=== PATIENT | male | born 1975 | race African-American/Black ===

== ENCOUNTER 2018-01-01 13:55 | Emergency (ER) | payer BC ==
[2018-01-01 14:56] LABS: #Basophils 0.1 thou/uL (0.0-0.2); #Lymphocytes 1.4 thou/uL (1.20-3.40); #Monocytes 0.5 thou/uL (0.11-0.59); #Neutrophils 3.6 thou/uL (1.40-6.50); %Basophils 1.1 % (0.0-1.0); %Eosinophils 0.9 % (0.0-10.0); %Lymphocytes 25.4 % (21.0-51.0); %Monocytes 9.1 % (0.0-10.0); %Neutrophils 63.5 % (42.0-75.0); Hemoglobin 16.1 g/dL (14.0-18.0); Mean Corpuscular HGB CONC 35.1 g/dL (32.0-36.0); Mean Corpuscular Hemoglobin 32.4 pg (27.0-31.0); Mean Corpuscular Volume 92.5 fl (80.0-94.0); Mean Platelet Volume 6.5 fL (7.4-10.4); Platelet Count 271 thou/uL (130-400); RBC Distribution Width 12.5 % (11.5-14.5); Red Blood Cell (RBC) Count 4.95 mill/uL (4.70-6.10); White Blood Cell (WBC) Count 5.6 thou/uL (4.8-10.8)
--- NOTE | 2018-01-01 15:02 | CT ---
CT BRAIN PERFORMED WITHOUT CONTRAST ENHANCEMENT: Date: 01/01/18 HISTORY: Brain cancer. History of seizure. COMPARISON: 09/17/16. FINDINGS: The ventricular and cisternal system is within normal limits. There are no signs of intracerebral hem orrhage or extra-axial fluid collections. Postoperative changes over the left frontoparietal convexit y are again noted. No change since the prior exam. IMPRESSION: Stable exam. POS: [facility]
[2018-01-01 15:17] LABS: ALT (SGPT) 20 U/L (8-55); AST (SGOT) 20 U/L (5-34); Albumin 3.8 g/dL (3.5-5.0); Alkaline Phosphatase 77 U/L (40-150); Anion Gap 11 mmol/L (10-20); BUN (Urea Nitrogen) 13 mg/dL (8.9-20.6); Bilirubin, Total 0.5 mg/dL (0.2-1.2); Calc. Creatinine Clearance 0 mL/min (70-130); Calcium 9.5 mg/dL (7.8-10.44); Carbon Dioxide 25 mmol/L (22-29); Chloride 103 mmol/L (98-107); Estimated GFR-MDRD 67; Globulin 3.1 g/dL (2.4-3.5); Glucose 93 mg/dL (70-105); Potassium 3.9 mmol/L (3.5-5.1); Protein, Total 6.9 g/dL (6.0-8.3); Sodium 135 mmol/L (136-145)
== END 2018-01-01 16:38 | disposition home or self-care (01) ==
LOC: ERS 13:55
DX: R56.9 Unspecified convulsions (principal); F17.210 Nicotine dependence, cigarettes, uncomplicated
CPT/HCPCS: 36415; 70450; 80053; 84146; 85025; 93005

== ENCOUNTER 2018-01-07 10:33 | Inpatient (IN) | payer BC ==
--- NOTE | 2018-01-07 11:19 | CT ---
CT BRAIN WITHOUT CONTRAST: History: Left sided extremity weakness. FINDINGS: Comparison is made with exam of 12-31-17. No interval change is seen. There is no evidence of acute infarct, hemorrhage, midline shift or abnor mal extraaxial fluid collections Ventricular size is normal and the basilar cisterns are patent. Pos t op changes over the left frontoparietal convexity are again seen. IMPRESSION: 1. Stable exam. No CT evidence of acute intracranial process. 2. Discussed over the telephone with ER physician Dr Laws at 10:29 a.m. POS: [facility]
--- NOTE | 2018-01-07 11:33 | CT ---
CTA OF THE HEAD AND NECK UTILIZING IV CONTRAST AND 3D REFORMATTED IMAGING: Date: 01/07/18 INDICATION: Stroke alert for left-sided extremity weakness, onset 25 minutes ago. COMPARISON: CT of brain performed earlier on 01/07/18 and a prior dated 01/01/18. MRI of the brain dated 02/22/11 . FINDINGS: No hemodynamically significant stenosis, occlusion, or aneurysmal formation is seen involving the int ernal carotid arteries and vertebral arteries. No hemodynamically significant stenosis, occlusion, or aneurysmal formation is seen involving the ACAs, MCAs, and leaf size picker. The visualized basilar and intracra nial vertebral arteries appear widely patent. There is postsurgical change involving the left parietal skull with encephalomalacia involving the le ft parietal region. No definite acute intracranial abnormality is evident. No definite abnormal enhan cement is noted. Visualized soft tissues of the neck appear within normal limits. No pathologically enlarged lymph nod es are evident. There is a tiny hypodensity in the left thyroid lobe that is subcentimeter. No defini te acute osseous abnormality is evident. There is multilevel spondylosis of the cervical spine. IMPRESSION: 1. No hemodynamically significant stenosis, occlusion, or aneurysmal formation demonstrated within t he large vessels. 2. Stable postsurgical and post therapy changes involving the head and brain. Findings called to ANNA Pate, at 1105 hours on 01/07/18. CODE CR. POS: [facility]
[2018-01-07] MEDS ORDERED: ISOVUE-370 76%-LOCM 1 ML ONE (11:58)
[2018-01-07] MEDS ORDERED: diphenhydrAMINE 50 MG/ML VIAL ONE (12:00)
[2018-01-07] MEDS ORDERED: Metoclopramide HCl 10 MG/2 ML VIAL ONE (12:00)
[2018-01-07] MEDS ORDERED: Aspirin 325 MG TAB ONE (12:00)
[2018-01-07 12:01] LABS: #Basophils 0.1 thou/uL (0.0-0.2); #Eosinphils 0.1 thou/uL (0.0-0.7); #Lymphocytes 1.3 thou/uL (1.20-3.40); #Monocytes 0.5 thou/uL (0.11-0.59); #Neutrophils 2.8 thou/uL (1.40-6.50); %Basophils 1.1 % (0.0-1.0); %Eosinophils 1.5 % (0.0-10.0); %Lymphocytes 27.2 % (21.0-51.0); %Monocytes 9.7 % (0.0-10.0); %Neutrophils 60.5 % (42.0-75.0); Hemoglobin 16.6 g/dL (14.0-18.0); Mean Corpuscular HGB CONC 33.8 g/dL (32.0-36.0); Mean Corpuscular Hemoglobin 31.8 pg (27.0-31.0); Mean Corpuscular Volume 93.8 fL (78.0-98.0); Mean Platelet Volume 6.5 fL (7.4-10.4); Platelet Count 284 thou/uL (130-400); RBC Distribution Width 12.4 % (11.5-14.5); Red Blood Cell (RBC) Count 5.23 mill/uL (4.70-6.10); White Blood Cell (WBC) Count 4.6 thou/uL (4.8-10.8)
[2018-01-07 12:14] LABS: PTT 31.9 SEC (22.9-36.1); Prothrombin Time 13.4 SEC (12.0-14.7)
[2018-01-07 12:27] LABS: ALT (SGPT) 41 U/L (8-55); AST (SGOT) 28 U/L (5-34); Acetaminophen Less than 6.0 mcg/mL (10.0-30.0); Alcohol Less than 10 mg/dL (Less than 10); Alkaline Phosphatase 72 U/L (40-150); Anion Gap 11 mmol/L (10-20); BUN (Urea Nitrogen) 10 mg/dL (8.9-20.6); Bilirubin, Total 0.5 mg/dL (0.2-1.2); CK (CPK) 177 U/L (30-200); Calc. Creatinine Clearance 0 mL/min (70-130); Calcium 9.8 mg/dL (7.8-10.44); Carbon Dioxide 26 mmol/L (22-29); Chloride 102 mmol/L (98-107); Estimated GFR-MDRD Greater than 90; Globulin 3.1 g/dL (2.4-3.5); Glucose 93 mg/dL (70-105); Potassium 4.7 mmol/L (3.5-5.1); Protein, Total 7.1 g/dL (6.0-8.3); Salicylate Less than 8.0 mg/dL (15.0-30.0); Sodium 134 mmol/L (136-145)
[2018-01-07 12:31] LABS: CKMB 1.4 ng/mL (0-6.6); Troponin I Less than 0.010 ng/mL (< 0.028)
[2018-01-07 12:53] LABS: Bilirubin Negative (Negative); Blood, Urine Negative (Negative); Clarity CLEAR (Clear); Glucose, Urine (Dipstick) Negative (Negative); Leukocyte Negative (Negative); Nitrite Negative (Negative); Protein, Urine (Dipstick) Negative (Neg-Trace); Urobilinogen 0.2 mg/dL (0.2-1.0); pH, Urine 7.5 (5.0-9.0)
[2018-01-07 12:59] LABS: Specific Gravity, Urine 1.043 (1.002-1.036)
[2018-01-07 13:03] LABS: Amphetamine Not Detected (NotDetected); Barbiturates Screen Not Detected (NotDetected); Benzodiazepine Screen Not Detected (NotDetected); Cocaine Metabolite Screen Not Detected (NotDetected); Medtox Control Line Valid? VALID (VALID); Medtox Reader # READER 4; Methadone Not Detected (NotDetected); Methamphetamine Not Detected (NotDetected); Opiate Screen Not Detected (NotDetected); Oxycodone Screen Not Detected (NotDetected); Phencyclidine (PCP) Not Detected (NotDetected); THC/Cannabinoid Screen Not Detected (NotDetected); Tricyclic Screen Not Detected (NotDetected)
--- NOTE | 2018-01-07 14:47 | MRI ---
MRI OF THE BRAIN WITHOUT CONTRAST: Date: 01/07/18 COMPARISON: MRI brain dated 10/01/15. CT brain dated 01/07/18, 01/01/18, and 09/17/16. TECHNIQUE: Multiplanar, multisequence MR images were obtained of the brain without IV contrast. FINDINGS: There are scattered areas of high FLAIR signal on the left periventricular white matter. These likely represent sequelae from remote infarctions. No restricted diffusion is seen to suggest an acute infa rction. The more anterior region of high FLAIR signal in the central region measuring 2.0 cm in width was not seen on the prior MRI and is an infarction that has occurred in the interim, but again is no t acute given the lack of restricted diffusion. There is no evidence of hydrocephalus, intracranial hemorrhage, or extra-axial fluid collection. The expected flow-voids are present. The corpus callosum, pituitary, and craniocervical junction are unre markable. The calvarium and overlying soft tissues are unremarkable. The visualized paranasal sinuses and masto id air cells are well aerated. IMPRESSION: 1. No evidence of acute intracranial abnormality. 2. 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 POS: [facility]
[2018-01-07] MEDS ORDERED: Bisacodyl 5 MG TAB PO PRN (15:03)
[2018-01-07] MEDS ORDERED: Acetaminophen 325 MG TAB PO PRN (15:03)
[2018-01-07 15:05] VITALS: BMI 25.4
--- NOTE | 2018-01-07 15:37 | HP ---
PRIMARY CARE PROVIDER: Aby Ziegler M.D. CHIEF COMPLAINT: Weakness. HISTORY OF PRESENT ILLNESS: Mr. Grant is a pleasant 42-year-old gentleman who was seen at [facility] on 01/07/2018. He gives a history of brain tumor for which he had chemotherapy by Dr. Gallegos and radiation therapy . He reports that he is considered to be free of brain tumor at this time. He was standing up earlier in the day. He suddenly went stiff and had his head turned to the side. Then, he slowly used himself to the floor. There is no history of frothing at the mouth or tonic urbano minda activity. No history of urinary incontinence. His speech had slowed down. He was also weak in the left upper and lower extremities. He also had a headache. He describes it as ongoing over the l ast week, constant, accompanied by nausea, 6/10 at its worst, nonradiating, no accompanying photophob ia or phonophobia, no known aggravating or relieving factors. REVIEW OF SYSTEMS: All other systems reviewed and found to be negative. MEDICAL HISTORY: Brain tumor. PAST SURGICAL HISTORY: Testicular surgery. SOCIAL HISTORY: The patient smokes half a pack of cigarettes a day. He denies recreational drug use . He drinks alcohol on a weekly basis. FAMILY HISTORY: Significant for heart disease in his grandmother. ALLERGIES: No known drug allergies. CURRENT MEDICATIONS: Keppra 500 mg 2 times a day. PHYSICAL EXAMINATION: GENERAL: Mr. Grant is awake and alert, not in acute distress. VITAL SIGNS: Blood pressure is 146/94, pulse is 62, his breathing at rate of 15 and saturating 97% o n room air. He is afebrile. EYES: No scleral icterus. No conjunctival pallor. ENT: Moist mucosal membranes, no oropharyngeal erythema or exudates. NECK: Supple, nontender, normal range of movement. Trachea is midline. RESPIRATORY: Accessory muscles of breathing are not active. Chest wall movements are symmetric bila terally. LUNGS: Clear to auscultation without wheeze, rhonchi or crepitations. CARDIOVASCULAR: S1 and S2 are heard, regular. Peripheral pulses palpable. No carotid bruit, no per icardial rub. ABDOMEN: Soft, nontender, bowel sounds are heard, no hepatomegaly, no splenomegaly. NEUROLOGIC: Cranial nerves II-XII intact, deep tendon reflexes are 2+. MUSCULOSKELETAL: Power is 5/5 in all 4 extremities. SKIN: No rashes or subcutaneous nodules. LYMPHATIC: No cervical lymphadenopathy. PSYCHIATRIC: Normal mood, normal affect, patient is oriented to person, place, and time. LABORATORY DATA: Mr. Grant's labs and investigations were reviewed. I reviewed his electrocardiogra m, which shows normal sinus rhythm, no ST changes to suggest an acute coronary syndrome. I also revi ewed noncontrast CT scan of the brain, which does not show any acute intracranial abnormalities. He had CT angiogram of the head and neck, which did not show any hemodynamically significant stenosis, o cclusion, or aneurysmal formation within the large vessels. He had stable post-surgical and post-the rapy changes involving the head and brain. He has leukopenia with 4600 white cells, normal hemoglobi n, normal platelet count, INR 1.0, decreased sodium of 134, otherwise normal comprehensive metabolic profile, normal troponin I, elevated prolactin level of 28.65, unremarkable urinalysis and unremarkab le urine toxicology screen. ASSESSMENT AND PLAN: Mr. Grant is a pleasant 42-year-old gentleman who was seen at [facility] on 01/07/2018. His problem list includes: 1. Acute encephalopathy: Mr. Grant is presenting with an acute encephalopathy, which has since reso lved. Differential diagnosis includes strokes as well as seizures. MRI of the brain is pending. We will consult Neurology Service for opinion and recommendations regarding Mr. Grant's medical problem s. 2. Hyponatremia: Mild, likely asymptomatic, we will recheck. 3. Leukopenia: Mild, likely not significant. We will recheck blood counts. 4. Tobacco abuse: Patient has been counseled regarding tobacco cessation. We will start him on minda otine replacement therapy. 5. History of brain tumor. Patient to follow up with his oncologist as outpatient. Many thanks for allowing me to participate in your patient's care. Please feel free to contact me wi th any questions or concerns. LEVEL OF RISK: High. LEVEL OF COMPLEXITY: High.
[2018-01-07] MEDS: HYDROcodone/Acetaminophen 5/325 mg Tablet PO PRN ×2 (16:16→21:04)
[2018-01-07] MEDS: Nicotine 14 MG PATCH TD SCH (16:17)
[2018-01-07] MEDS: levETIRAcetam 500 MG TAB PO SCH (21:03)
[2018-01-08] MEDS: traMADol HCl 50 MG TAB PO PRN ×3 (01:23→15:52)
[2018-01-08 05:27] LABS: #Eosinphils 0.1 thou/uL (0.0-0.7); #Lymphocytes 1.7 thou/uL (1.20-3.40); #Monocytes 0.6 thou/uL (0.11-0.59); #Neutrophils 2.7 thou/uL (1.40-6.50); %Basophils 0.2 % (0.0-1.0); %Eosinophils 1.6 % (0.0-10.0); %Lymphocytes 33.4 % (21.0-51.0); %Monocytes 11.9 % (0.0-10.0); %Neutrophils 52.9 % (42.0-75.0); Hemoglobin 15.7 g/dL (14.0-18.0); Mean Corpuscular HGB CONC 34.8 g/dL (32.0-36.0); Mean Corpuscular Hemoglobin 32.1 pg (27.0-31.0); Mean Corpuscular Volume 92.4 fL (78.0-98.0); Mean Platelet Volume 6.2 fL (7.4-10.4); Platelet Count 284 thou/uL (130-400); RBC Distribution Width 12.4 % (11.5-14.5); Red Blood Cell (RBC) Count 4.89 mill/uL (4.70-6.10); White Blood Cell (WBC) Count 5.1 thou/uL (4.8-10.8)
[2018-01-08 05:47] LABS: Anion Gap 12 mmol/L (10-20); BUN (Urea Nitrogen) 11 mg/dL (8.9-20.6); Calc. Creatinine Clearance 127 mL/min (70-130); Calcium 9.6 mg/dL (7.8-10.44); Carbon Dioxide 26 mmol/L (22-29); Chloride 104 mmol/L (98-107); Estimated GFR-MDRD Greater than 90; Glucose 100 mg/dL (70-105); Potassium 3.7 mmol/L (3.5-5.1); Sodium 138 mmol/L (136-145)
--- NOTE | 2018-01-08 06:14 | CON ---
DATE OF CONSULTATION: 01/07/2018 REASON FOR CONSULTATION: Altered mental status. HISTORY OF PRESENT ILLNESS: Mr. Grant is a pleasant 42-year-old -[place] male who has been c oncerned for evaluation of altered mental status. Patient's mother is at bedside. 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 He has been recurrence free since that time, she reports that today he was at home and suddenly stared off in space, became weak all over and slows down from the chair to the floor. He was not re sponsive to any verbal stimuli. There were no convulsions at that time, he was unresponsive for 2-3 minutes followed by confusion. There was no tongue biting or loss of bladder control noticed. She r eports that he is now back to his baseline. She states that he had presented to the [facility] about 1 week ago for seizure-like episode at that time, they had started him on Keppra 500 mg twi ce daily. He has a seizure about a year ago for which he did not seek any medical attention and thus he has now been on any antiepileptic medication. He states that he has been tolerating Keppra well without any noticeable side effects. PAST MEDICAL HISTORY: Significant for history of astrocytoma, post-chemo and radiation therapy. PAST SURGICAL HISTORY: Significant for testicular surgery. SOCIAL HISTORY: He smokes one-half pack of cigarettes on a daily basis. He denies illicit drug use. He does drink alcohol on a weekly basis. FAMILY HISTORY: Noncontributory. CURRENT MEDICATIONS: Please review MAR. ALLERGIES: No known drug allergies. REVIEW OF SYSTEMS: As mentioned above in the HPI, otherwise negative. PHYSICAL EXAMINATION: VITAL SIGNS: Blood pressure of 123/81, pulse of 63, temperature of 98.3, respirations of 16, O2 sats 99% on room air. GENERAL: A well-developed, well-nourished -[place]ambod[place] male, in no apparent distress. RESPIRATORY: Clear to auscultation bilaterally. CARDIOVASCULAR: Regular rate and rhythm. NEUROLOGIC: Mental status: The patient is awake, alert, oriented x3. Speech and language: Fluent speech. Cranial nerves: Pupils are 3 mm and reactive. Visual leonardo are intact. Extraocular muscl es intact. No nystagmus noted. Face is symmetric. Tongue and uvula midline. Motor exam showed nor mal tone and bulk with 5/5 strength in both upper and lower extremities. Babinski: Plantar response s flexion bilaterally. Coordination intact to [id number] and finger tapping bilaterally. LABORATORY DATA: Reviewed, which included CBC, CMP, urinalysis, and urine drug screen, which is sign ificant for WBC of 4.6, sodium 134, otherwise unremarkable. IMAGING STUDIES: MRI brain without contrast was reviewed, which showed encephalomalacia involving th e left periventricular white matter. This is likely secondary to his prior astrocytoma. CT angiogra m of the head and neck were reviewed, which showed no acute intracranial or extracranial vascular abn ormality. IMPRESSION: 1. Complex partial seizure. 2. History of astrocytoma. PLAN: Mr. Grant is a pleasant 42-year-old -[place] male with history of astrocytoma, post-ch emo and radiation therapy, presented with the episode of staring out in space. Based on the descript ion of tatiana, this is likely complex partial seizure. I have increased the dose of the Keppra to 750 mg twice daily. I have discussed with him regarding seizure precautions including no driving for 3 months, no climbing ladders, and no operating heavy machinery. Continue supportive care. I will obt ain EEG if patient remains stable overnight without any episode of seizure, then he is okay to be dis charged to home with outpatient followup appointment in my clinic in 6-8 weeks.
[2018-01-08] MEDS: HYDROcodone/Acetaminophen 5/325 mg Tablet PO PRN (06:15)
[2018-01-08] MEDS: levETIRAcetam 500 MG TAB PO SCH ×2 (08:28→20:19)
[2018-01-08] MEDS: Enoxaparin Sodium 40 MG/0.4 ML SYRINGE SC SCH (08:28)
[2018-01-08] MEDS ORDERED: Ketorolac Tromethamine 30 MG/ML VIAL IVP SCH (12:00)
--- NOTE | 2018-01-08 13:29 | PDOC.PN ---
- Subjective Encounter Start Date: 01/08/18 Encounter Start Time: 07:40 Pt seen for followup re: - Objective MAR Reviewed: Yes Vital Signs & Weight: Vital Signs (12 hours) Temp Pulse Resp BP Pulse Ox 01/08/18 11:42 98.3 F 72 16 133/92 H 97 01/08/18 08:00 98.7 F 74 18 01/08/18 07:13 98.7 F 74 18 134/81 98 01/08/18 04:00 98.3 F 73 18 129/88 97 I&O: 01/07/18 01/08/18 01/09/18 06:59 06:59 06:59 Intake Total 760 120 Balance 760 120 Result Diagrams: 01/08/18 05:10 01/08/18 05:10 EKG Reviewed by me: Yes (Tele: NSR) Phys Exam - Physical Examination Constitutional: NAD HEENT: moist MMs, sclera anicteric, oral pharynx no lesions, 2+ tonsils Neck: no nodes, no JVD, supple, full ROM Respiratory: no wheezing, no rales, no rhonchi, clear to auscultation bilateral Cardiovascular: RRR, no rub S1, S2 Gastrointestinal: soft, non-tender, no distention, positive bowel sounds Neurological: moves all 4 limbs Psychiatric: normal affect, A&O x 3 Dx/Plan (1) Acute encephalopathy Code(s): G93.40 - ENCEPHALOPATHY, UNSPECIFIED Status: Acute Comment: likely due to partial seizure (2) Partial seizure Status: Acute Comment: Pt awaiting EEG, continue increased dose of Keppra (3) Tobacco abuse Code(s): Z72.0 - TOBACCO USE Status: Chronic Comment: continue nicotine replacement therapy (4) H/O brain tumor Code(s): Z87.898 - PERSONAL HISTORY OF OTHER SPECIFIED CONDITIONS Status: Chronic Comment: s/p chemo and radiation therapy (5) Leukopenia Code(s): D72.819 - DECREASED WHITE BLOOD CELL COUNT, UNSPECIFIED Status: Resolved (6) Hyponatremia Code(s): E87.1 - HYPO-OSMOLALITY AND HYPONATREMIA Status: Resolved - Plan * . Review of Systems - Review of Systems Constitutional: negative: fever, chills, sweats, weakness, malaise Respiratory: negative: Cough, Shortness of Breath, SOB with Excertion, Pleuritic Pain, Wheezing Cardiovascular: negative: chest pain, palpitations, orthopnea, paroxysmal nocturnal dyspnea, edema, light headedness Gastrointestinal: negative: Nausea, Vomiting, Abdominal Pain, Diarrhea, Constipation, Melena, Hematochezia Skin: negative: Rash, Lesions, [place], Bruising Neurological: Other (headache). negative: Weakness, Numbness, Incoordination, Change in Speech, Confusion, Seizures - Medications/Allergies Allergies/Adverse Reactions: Allergies Allergy/AdvReac Type Severity Reaction Status Date / Time No Known Drug Allergies Allergy Verified 01/07/18 13:47 Medications: Current Medications Acetaminophen (Tylenol) 650 mg PO Q4H PRN PRN Reason: Headache/Fever or Pain Bisacodyl (Dulcolax) 10 mg PO DAILYPRN PRN PRN Reason: Constipation Enoxaparin Sodium (Lovenox) 40 mg SC 0900 [facility] Last Admin: 01/08/18 08:28 Dose: 40 mg Ketorolac Tromethamine (Toradol) 30 mg IVP 1200 [facility] Stop: 01/08/18 14:00 Last Admin: 01/08/18 12:22 Dose: 30 mg Ketorolac Tromethamine (Toradol) 15 mg IVP Q6H PRN PRN Reason: Pain Stop: 01/13/18 11:35 Levetiracetam (Keppra) 750 mg PO BID [facility] Last Admin: 01/08/18 08:28 Dose: 750 mg Lorazepam (Ativan) 1 mg SLOW IVP Q2H PRN PRN Reason: Seizures Morphine Sulfate (Morphine) 2 mg SLOW IVP Q4H PRN PRN Reason: Severe Pain (7-10) Nicotine (Nicoderm Patch) 14 mg TD Q24HR [facility] Last Admin: 01/07/18 16:17 Dose: 14 mg Sodium Chloride (Flush - Normal Saline) 10 ml IVF Q12HR [facility] Last Admin: 01/08/18 08:33 Dose: Not Given Sodium Chloride (Flush - Normal Saline) 10 ml IVF PRN PRN PRN Reason: Saline Flush Tramadol HCl (Ultram) 50 mg PO Q6H PRN PRN Reason: Mild-Moderate Pain (1-6) Last Admin: 01/08/18 09:56 Dose: 50 mg
[2018-01-08] MEDS ORDERED: Non-Formulary Item 1 EACH (Naproxen Sodium [Aleve] 2 TAB) PO PRN (13:38)
[2018-01-08] MEDS ORDERED: Naproxen 500 MG TAB PO PRN (13:43)
[2018-01-08] MEDS: Nicotine 14 MG PATCH TD SCH (15:53)
[2018-01-08] MEDS: Lorazepam 2 MG/ML VIAL SLOW IVP PRN (18:39)
[2018-01-09] MEDS: traMADol HCl 50 MG TAB PO PRN ×2 (02:23→08:59)
[2018-01-09] MEDS: Ketorolac Tromethamine 30 MG/ML VIAL IVP PRN ×3 (07:53→20:53)
[2018-01-09] MEDS: levETIRAcetam 500 MG TAB PO SCH ×2 (07:59→20:32)
[2018-01-09] MEDS: Enoxaparin Sodium 40 MG/0.4 ML SYRINGE SC SCH (07:59)
--- NOTE | 2018-01-09 10:44 | MRI ---
MRI OF THE BRAIN WITH CONTRAST: COMPARISON: MRI brain 01/07/18, 04/22/15, 12/22/11, 06/22/11, 02/22/11. HISTORY: History of astrocytoma. Abnormality seen on prior MRI of the brain. Evaluate for an enhancing mass. TECHNIQUE: Multiplanar postcontrast images were obtained in the brain with contrast. FINDINGS: In the areas where the high T2 signal is seen in the left periventricular white matter, in the fronto parietal region, and in the posterior parietal region, no abnormal enhancement is seen. In the right occipital lobe, and parietal lobe, there appears to be abnormal pial enhancement best seen on sagitt al image 10 of . This is not seen elsewhere throughout the dura. There is even a small area of en hancing nodularity in the right occipital lobe. There is no evidence of hydrocephalus. The calvarium and overlying soft tissues are unremarkable. The visualized paranasal sinuses and mast oid air cells are well aerated. IMPRESSION: 1. There is no abnormal enhancement seen in the left periventricular white matter. This patient's i nitial tumor enhanced in 2010. This did not enhance on further exams, and the patient appeared to mercedes ve radiation therapy. The changes in the white matter demonstrated on the T2 sequences could potenti ally represent post-radiation therapy change. Small-vessel ischemic disease is a possibility, althou gh the patient is young. 2. Abnormal meningeal enhancement seen in the right occipital lobe and parietal lobe is nonspecific. POS: [facility]
[2018-01-09] MEDS ORDERED: Labetalol HCl 100 MG/20 ML VIAL SLOW IVP PRN (13:27)
[2018-01-09] MEDS: Nicotine 14 MG PATCH TD SCH (14:27)
--- NOTE | 2018-01-09 18:19 | PRG ---
DATE OF SERVICE: 01/08/2018 HISTORY OF PRESENT ILLNESS: Mr. Gratn is a pleasant 42-year-old -[place] male with history o f astrocytoma, status post chemo and radiation therapy, presented with a seizure-like episode. Accor ding to the patient, he had 2 more episodes on today with his friend was in the room who noted that w ith one of the episode, he started shaking his arms and legs and during that time he was coherent. H e was able to follow commands. He was able to talk. After the episode was over, he started complain ing of having dizziness. He complained of having vertigo-type sensation. He was sitting in bed at t hat time. There was no tongue biting, no loss of bladder control noted. There was no postictal conf usion noted. He had another episode in the afternoon, which was similar in nature. PHYSICAL EXAMINATION: VITAL SIGNS: Blood pressure of 153/99, pulse of 76, temperature of 97.4, respirations of 16, O2 sats of 97% on room air. GENERAL: Well-developed, well-nourished -[place] male in no apparent distress. RESPIRATORY: Clear to auscultation bilaterally. CARDIOVASCULAR: Regular rate and rhythm. NEUROLOGICAL: Mental, status: The patient is awake, alert, oriented x3. Speech and language: Flue nt speech. Cranial nerves: Pupils are 3 mm and reactive. Visual leonardo are intact. Extraocular mu scles are intact. No nystagmus noted. Face is symmetric. Motor exam showed normal tone and bulk wi th a 5/5 strength in both lower extremities. LABORATORY DATA: Reviewed, which included CBC, BMP, which is essentially normal. EEG was reviewed w hich was normal, awake, and asleep EEG. IMPRESSION: 1. Complex partial seizure. 2. Episodes of dizziness. 3. Prior history of astrocytoma. Mr. Grant is a pleasant 42-year-old -[place] male with a history of astrocytoma post-chemo an d radiation therapy, presented with a seizure-like episode. He had 2 more episodes of current jerkin g and twitching today. Based on the description, these are somewhat unusual as he was awake and aler t. During this episode, one of my concern is this could be nonepileptic pseudoseizure. In any case, I would recommend continue him on Keppra 750 mg b.i.d. I will obtain MRI brain with contrast given h is prior history of astrocytoma and new seizures. I would like to make sure there is no new enhancin g lesion. Continue supportive care. Continue physical therapy if patient remains stable overnight a nd no episode of seizure. Once the MRI is done, patient can be discharged to home with outpatient fo llow up appointment in my clinic in 4-6 weeks post-discharge.
--- NOTE | 2018-01-09 20:11 | PRG ---
DATE OF SERVICE: 01/09/2018 SUBJECTIVE: Mr. Grant is a 42-year-old -Swiss male with a history of astrocytoma in 2010 p ost-chemo and radiation therapy presented with the seizure-type episode. He has not had any more sei zure-type episode this morning. He had 2 episodes yesterday. The patient continues to complain of f eeling dizzy and off balance. He denies any headache, chest pain, palpitation. PHYSICAL EXAMINATION: VITAL SIGNS: Blood pressure of 135/97, pulse of 64, temperature of 97.7, respirations of 16, O2 sats of 97% on room air. GENERAL: Well-developed, well-nourished -Swiss male in no apparent distress. RESPIRATORY: Clear to auscultation bilaterally. CARDIOVASCULAR: Regular rate and rhythm. NEUROLOGIC: Mental status: The patient is awake, alert, oriented x3. Speech and language: Fluent speech. Cranial nerves: Pupils are 3 mm and reactive. Visual leonardo are intact. Extraocular muscl es are intact. Face is symmetric. Motor exam showed normal tone and bulk with 5/5 strength in both upper and lower extremities. LABORATORY DATA: Labs are reviewed, which included CBC and BMP, which is significant for sodium of 1 34, otherwise unremarkable. IMAGING STUDIES: MRI brain with contrast was reviewed, that was done earlier today. There was no en hancement of the left astrocytoma mass that was seen in the previous studies; however, there is a new enhancement in the toan mater in right occipitoparietal region that is of unknown etiology. IMPRESSION: 1. Complex partial seizure. 2. Right temporoparietal abnormal enhancement. ASSESSMENT AND PLAN: Mr. Grant is a pleasant 42-year-old -Swiss male who presented with th e new-onset seizure. The Keppra has been increased to 750 mg twice daily. I will recommend to javier austen Keppra at the current dose. He had an enhancement in the right parietal and occipital region floyd t is of unknown etiology. I will obtain lumbar puncture under fluoroscopy and further obtain CSF carlee dies to include CSF cell count and diff, glucose and protein, angiotensin-converting enzyme level, Gr am stain and culture, West Nile antibodies, MS panel, VDRL. I will follow up on the above studies fo r further recommendations at that time.
[2018-01-09] MEDS: Lorazepam 2 MG/ML VIAL SLOW IVP PRN (20:32)
--- NOTE | 2018-01-09 21:14 | PDOC.PN ---
- Subjective Encounter Start Date: 01/09/18 Encounter Start Time: 13:00 Patient seen and examined for seizure. No new complaints. Had tonic-clonic seizure this AM. Feels gen weak. Unstable gait. - Objective MAR Reviewed: Yes Vital Signs & Weight: Vital Signs (12 hours) Temp Pulse Resp BP Pulse Ox 01/09/18 20:06 98.1 F 67 18 158/109 H 96 01/09/18 16:00 97.7 F 64 16 135/97 H 97 01/09/18 11:36 97.9 F 67 14 154/110 H 96 Weight Weight 204 lb 3.2 oz I&O: 01/08/18 01/09/18 01/10/18 06:59 06:59 06:59 Intake Total 760 2460 1755 Output Total 1750 650 Balance 394 221 1208 Result Diagrams: 01/08/18 05:10 01/08/18 05:10 Additional Labs: Microbiology 01/07/18 12:37 Urine voided Urine Culture - Final NO GROWTH AT 48 HOURS Phys Exam - Physical Examination Constitutional: NAD Respiratory: no wheezing, no rales, no rhonchi Cardiovascular: RRR, no rub Gastrointestinal: soft, non-tender, no distention, positive bowel sounds Musculoskeletal: no edema Neurological: moves all 4 limbs Gen weak, Somnolent Dx/Plan (1) Acute encephalopathy Code(s): G93.40 - ENCEPHALOPATHY, UNSPECIFIED Status: Acute Comment: likely due to partial seizure (2) Partial seizure Status: Acute Comment: Complex partial seizure (3) H/O brain tumor Code(s): Z87.898 - PERSONAL HISTORY OF OTHER SPECIFIED CONDITIONS Status: Chronic Comment: s/p chemo and radiation therapy (4) Tobacco abuse Code(s): Z72.0 - TOBACCO USE Status: Chronic Comment: on nicotine replacement therapy - Plan PT/OT, DVT proph w/SCDs Cont Keppra -: Await MRI with contrast results -: Neuro following -: Cont to monitor -: Consult PT due to unsteady gait Review of Systems - Review of Systems Respiratory: negative: Cough, Dry, Shortness of Breath, Hemoptysis, SOB with Excertion, Pleuritic Pain, Sputum, Wheezing Cardiovascular: negative: chest pain, palpitations, orthopnea, paroxysmal nocturnal dyspnea, edema, light headedness, other - Medications/Allergies Allergies/Adverse Reactions: Allergies Allergy/AdvReac Type Severity Reaction Status Date / Time No Known Drug Allergies Allergy Verified 01/07/18 13:47 Medications: Current Medications Acetaminophen (Tylenol) 650 mg PO Q4H PRN PRN Reason: Headache/Fever or Pain Hydrocodone Bitart/Acetaminophen ([place] 5/325) 1 tab PO Q4H PRN PRN Reason: Moderate Pain (4-6) Bisacodyl (Dulcolax) 10 mg PO DAILYPRN PRN PRN Reason: Constipation Enoxaparin Sodium (Lovenox) 40 mg SC 0900 [facility] Last Admin: 01/09/18 07:59 Dose: 40 mg Ketorolac Tromethamine (Toradol) 15 mg IVP Q6H PRN PRN Reason: Pain Stop: 01/13/18 11:35 Last Admin: 01/09/18 20:53 Dose: 15 mg Labetalol HCl (Normodyne) 10 mg SLOW IVP Q4H PRN PRN Reason: Systolic BP > 180 Levetiracetam (Keppra) 750 mg PO BID [facility] Last Admin: 01/09/18 20:32 Dose: 750 mg Lorazepam (Ativan) 1 mg SLOW IVP Q2H PRN PRN Reason: Seizures Last Admin: 01/09/18 20:32 Dose: 1 mg Naproxen (Naprosyn) 500 mg PO DAILYPRN PRN PRN Reason: Pain Last Admin: 01/09/18 10:55 Dose: 500 mg Nicotine (Nicoderm Patch) 14 mg TD Q24HR [facility] Last Admin: 01/09/18 14:27 Dose: 14 mg Sodium Chloride (Flush - Normal Saline) 10 ml IVF Q12HR [facility] Last Admin: 01/09/18 20:34 Dose: 10 ml Sodium Chloride (Flush - Normal Saline) 10 ml IVF PRN PRN PRN Reason: Saline Flush
[2018-01-10] MEDS: HYDROcodone/Acetaminophen 5/325 mg Tablet PO PRN ×2 (08:41→18:42)
[2018-01-10] MEDS: levETIRAcetam 500 MG TAB PO SCH ×2 (08:42→21:08)
[2018-01-10 12:32] LABS: Color Of CSF Supernatant COLORLESS (Colorless); Tube # 2; Unspun CSF Color COLORLESS (Colorless)
[2018-01-10 12:33] LABS: CSF Source CSF; Clarity Clear (Clear); RBC Count - Manual 0 /cumm (None Seen); Tube # 4; WBC/NonHematics Count - Manual 1 /cumm (0-5)
--- NOTE | 2018-01-10 12:36 | RAD ---
LUMBAR PUNCTURE WITH FLUOROSCOPIC GUIDANCE: HISTORY: Abnormal enhancement of the parietooccipital region. EXPOSURE: 0.7 minutes. 394.7 mGy*^m2. FINDINGS: Successful lumbar puncture. A total of 12 cc of clear CSF was obtained. There are no immediate post procedure complications. There is a 2-view lumbar spine elder counselor radiograph which demonstrates 5 lumbar-type vertebral bodies. N o fracture or malalignment. TECHNIQUE: Consent was obtained to perform a lumbar puncture with fluoroscopic guidance. The patient's back was evaluated. The L3-L4 level was deemed appropriate. The skin was prepped and draped in sterile fash ion. 1% Lidocaine, buffered with sodium bicarbonate, was used for local anesthesia. Under fluorosco pic guidance, a 22-gauge spinal needle was advanced into the CSF space. The inner stylette was remov ed. Prompt flow of clear CSF to the hub of the needle. A total of 12 cc of clear CSF was collected. The patient tolerated the procedure well. No immediate or postprocedure complication. IMPRESSION: Successful lumbar puncture. POS: KALYAN
[2018-01-10 12:44] LABS: CSF, Glucose 54 mg/dl (40-70); CSF, Protein 39 mg/dL (15-40)
--- NOTE | 2018-01-10 13:12 | EEG ---
Referring Physician: DR. ABIOLA PARRISH EEG # [id number] TEST TYPE: ROUTINE PORTABLE INPATIENT REASON FOR EEG: SEIZURE DATE OF SERVICE: 01/07/2018 EEG DESCRIPTION: This is a 21 channel EEG recording. Electrodes are placed using the ten-twenty international electrode placement system. The background rhythm is predominately 9-10 hertz, medium voltage alpha rhythm. It is a reactive background. PHOTIC STIMULATION: Showed no effect. HYPERVENTILATION: Could not be done as patient was too sleepy. There are periods of drowsiness with sleep potentials. EKG LEAD: Shows 66 beats per minute, regular rhythm. IMPRESSION: THIS IS A NORMAL AWAKE AND ASLEEP EEG. Hospital Medical Biller: AIDEN Associate Store Director: EEG.MS MTDD
--- NOTE | 2018-01-10 13:36 | PDOC.PN ---
- Subjective Encounter Start Date: 01/10/18 Encounter Start Time: 07:00 Pt seen for followup re: seizure. Denies chets pain or shortness of breath. Reports headache. No vomiting. - Objective MAR Reviewed: Yes Vital Signs & Weight: Vital Signs (12 hours) Temp Pulse Resp BP Pulse Ox 01/10/18 08:00 97.2 F L 74 16 01/10/18 07:36 97.2 F L 74 16 167/116 H 98 01/10/18 04:25 97.7 F 66 16 145/89 H 97 01/10/18 02:49 96 Weight Weight 210 lb 6.4 oz I&O: 01/09/18 01/10/18 01/11/18 06:59 06:59 06:59 Intake Total 2460 2235 Output Total 1750 650 Balance 710 1585 Result Diagrams: 01/08/18 05:10 01/08/18 05:10 EKG Reviewed by me: Yes (Tele: NSR) Phys Exam - Physical Examination Constitutional: NAD HEENT: moist MMs Neck: supple Respiratory: clear to auscultation bilateral Cardiovascular: RRR Gastrointestinal: soft Neurological: moves all 4 limbs Psychiatric: normal affect Dx/Plan (1) Partial seizure Status: Acute Comment: Complex partial seizure, Keppra dose increased. Pt had MRI brain with contrast yesterday evening. (2) Tobacco abuse Code(s): Z72.0 - TOBACCO USE Status: Chronic Comment: continue nicotine replacement therapy (3) H/O brain tumor Code(s): Z87.898 - PERSONAL HISTORY OF OTHER SPECIFIED CONDITIONS Status: Chronic Comment: s/p chemo and radiation therapy (4) Leukopenia Code(s): D72.819 - DECREASED WHITE BLOOD CELL COUNT, UNSPECIFIED Status: Resolved (5) Hyponatremia Code(s): E87.1 - HYPO-OSMOLALITY AND HYPONATREMIA Status: Resolved (6) Acute encephalopathy Code(s): G93.40 - ENCEPHALOPATHY, UNSPECIFIED Status: Resolved Comment: likely due to partial seizure - Plan * . Review of Systems - Review of Systems Constitutional: negative: fever, chills, sweats, weakness, malaise Respiratory: negative: Cough, Shortness of Breath, SOB with Excertion, Pleuritic Pain, Wheezing Neurological: Other (headache). negative: Weakness, Numbness, Incoordination, Change in Speech, Confusion, Seizures - Medications/Allergies Allergies/Adverse Reactions: Allergies Allergy/AdvReac Type Severity Reaction Status Date / Time No Known Drug Allergies Allergy Verified 01/07/18 13:47 Medications: Current Medications Acetaminophen (Tylenol) 650 mg PO Q4H PRN PRN Reason: Headache/Fever or Pain Hydrocodone Bitart/Acetaminophen ([place] 5/325) 1 tab PO Q4H PRN PRN Reason: Moderate Pain (4-6) Last Admin: 01/10/18 08:41 Dose: 1 tab Bisacodyl (Dulcolax) 10 mg PO DAILYPRN PRN PRN Reason: Constipation Labetalol HCl (Normodyne) 10 mg SLOW IVP Q4H PRN PRN Reason: Systolic BP > 180 Levetiracetam (Keppra) 750 mg PO BID [facility] Last Admin: 01/10/18 08:42 Dose: 750 mg Lorazepam (Ativan) 1 mg SLOW IVP Q2H PRN PRN Reason: Seizures Last Admin: 01/09/18 20:32 Dose: 1 mg Morphine Sulfate (Morphine) 4 mg SLOW IVP Q6H PRN PRN Reason: Pain Naproxen (Naprosyn) 500 mg PO DAILYPRN PRN PRN Reason: Pain Last Admin: 01/09/18 10:55 Dose: 500 mg Nicotine (Nicoderm Patch) 14 mg TD Q24HR [facility] Last Admin: 01/09/18 14:27 Dose: 14 mg Sodium Chloride (Flush - Normal Saline) 10 ml IVF Q12HR [facility] Last Admin: 01/10/18 08:42 Dose: 10 ml Sodium Chloride (Flush - Normal Saline) 10 ml IVF PRN PRN PRN Reason: Saline Flush
[2018-01-10] MEDS: Nicotine 14 MG PATCH TD SCH (15:18)
[2018-01-10] MEDS: Lorazepam 2 MG/ML VIAL SLOW IVP PRN (16:56)
--- NOTE | 2018-01-10 20:53 | PRG ---
DATE OF SERVICE: 01/10/2018 SUBJECTIVE: Mr. Grant had 2 more episodes of seizure-like activity today. According to the nurse, caleb patton had turned his head towards the left side, became stiff on both upper extremities that lasted approximately 1 minute. During that time, he was nonresponsive. Immediately after the episode, he w as awake, alert, and oriented. There was no tongue biting, no loss of bladder control or no posticta l confusion noted. PHYSICAL EXAMINATION: VITAL SIGNS: Blood pressure of 145/103, pulse of 77, temperature 97.9, respirations of 16, O2 sats o f 98% on room air. GENERAL: Well-developed, well-nourished -[place]ian male in no apparent distress. RESPIRATORY: Clear to auscultation bilaterally. CARDIOVASCULAR: Regular rate and rhythm. NEUROLOGIC: Unchanged compared to yesterday. LABORATORY DATA: Reviewed, which included CSF studies CSF WBC of 1, RBC of 0, glucose of 54 and prot ein of 39. Gram stain and cultures are negative. IMPRESSION: 1. Complex partial seizure. 2. Prior left astrocytoma post-radiation and chemotherapy. ASSESSMENT AND PLAN: Mr. 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 Based on th e situation, it was felt this could be complex partial seizure. At this time, I would recommend cont inuing on Keppra and I have added Depakote 500 mg once a day extended release. I had reviewed the MR [place] brain with Dr. Nakul Acevedo, radiologist and discussed the case with him. Based on his assessment, he feels that there may be a recurrence of the astrocytoma on the left side that was not mentioned in the previous report. For this reason, I will consult neurosurgery for their opinion and recommendat ions. If the patient remains seizure free, the patient is okay to be discharged to home after being evaluated by Neurosurgery. I would not be available on tomorrow or day after tomorrow. So, if there are any questions or concerns, please call on-call neurologist. Thank you for consultation.
[2018-01-11] MEDS: HYDROcodone/Acetaminophen 5/325 mg Tablet PO PRN ×4 (09:03→21:13)
[2018-01-11] MEDS: levETIRAcetam 500 MG TAB PO SCH ×2 (09:03→21:01)
--- NOTE | 2018-01-11 09:27 | PDOC.PN ---
- Subjective Encounter Start Date: 01/11/18 - Objective MAR Reviewed: Yes Vital Signs & Weight: Vital Signs (12 hours) Temp Pulse Resp BP Pulse Ox 01/11/18 08:00 97.3 F L 75 18 142/101 H 98 01/11/18 03:39 97.6 F 75 16 122/85 96 01/10/18 23:53 98.5 F 70 16 147/101 H 96 Weight Weight 212 lb 4.8 oz I&O: 01/10/18 01/11/18 01/12/18 06:59 06:59 06:59 Intake Total 2235 720 Output Total 650 Balance 1585 720 Result Diagrams: 01/08/18 05:10 01/08/18 05:10 Dx/Plan (1) Partial seizure Status: Acute Comment: Complex partial seizure, Keppra dose increased and Depakote added. Neurology concerned about possible tumor recurrence after looking at MRI. Neurosurgery consulted. If no more seizures and no intervention by neurosurgery can likely d/c home with antiepileptics. (2) H/O brain tumor Code(s): Z87.898 - PERSONAL HISTORY OF OTHER SPECIFIED CONDITIONS Status: Chronic Comment: s/p chemo and radiation therapy (3) Acute encephalopathy Code(s): G93.40 - ENCEPHALOPATHY, UNSPECIFIED Status: Resolved Comment: likely due to partial seizure (4) Hyponatremia Code(s): E87.1 - HYPO-OSMOLALITY AND HYPONATREMIA Status: Resolved (5) Leukopenia Code(s): D72.819 - DECREASED WHITE BLOOD CELL COUNT, UNSPECIFIED Status: Resolved (6) Tobacco abuse Code(s): Z72.0 - TOBACCO USE Status: Chronic Comment: continue nicotine replacement therapy - Plan cont current plan of care, PT/OT * .
--- NOTE | 2018-01-11 13:38 | PDOC.PN ---
- Subjective Encounter Start Date: 01/11/18 Encounter Start Time: 11:10 Subjective: Patient with severe headache, worse after seizure this morning. Reports -: left peripheral vision loss since before admit. No new neuro signs in -: hospital. - Objective MAR Reviewed: Yes Vital Signs & Weight: Vital Signs (12 hours) Temp Pulse Resp BP Pulse Ox 01/11/18 11:28 98.5 F 75 18 144/97 H 98 01/11/18 08:00 97.3 F L 75 18 142/101 H 98 01/11/18 03:39 97.6 F 75 16 122/85 96 Weight Weight 212 lb 4.8 oz I&O: 01/10/18 01/11/18 01/12/18 06:59 06:59 06:59 Intake Total 2235 720 Output Total 650 Balance 1585 720 Result Diagrams: 01/08/18 05:10 01/08/18 05:10 Phys Exam - Physical Examination mild distress from pain HEENT: PERRLA, moist MMs Respiratory: no wheezing, no rales, no rhonchi Cardiovascular: RRR, no significant murmur Gastrointestinal: soft, positive bowel sounds Musculoskeletal: no edema Neurological: non-focal, moves all 4 limbs Psychiatric: normal affect, A&O x 3 Dx/Plan (1) Partial seizure Status: Acute Comment: Complex partial seizure, Keppra dose increased and Depakote added. Neurology concerned about possible tumor recurrence after looking at MRI. Neurosurgery consulted. Continued seizures this AM. Will consult Dr. Lerma since Dr. Fiore out of town for next 2 days. (2) H/O brain tumor Code(s): Z87.898 - PERSONAL HISTORY OF OTHER SPECIFIED CONDITIONS Status: Chronic Comment: s/p chemo and radiation therapy (3) Acute encephalopathy Code(s): G93.40 - ENCEPHALOPATHY, UNSPECIFIED Status: Resolved Comment: likely due to partial seizure (4) Hyponatremia Code(s): E87.1 - HYPO-OSMOLALITY AND HYPONATREMIA Status: Resolved (5) Leukopenia Code(s): D72.819 - DECREASED WHITE BLOOD CELL COUNT, UNSPECIFIED Status: Resolved (6) Tobacco abuse Code(s): Z72.0 - TOBACCO USE Status: Chronic Comment: continue nicotine replacement therapy - Plan cont current plan of care, DVT proph w/lovenox, DVT proph w/SCDs Awaiting neurosurgical consultation. * . - Discharge Day Encounter end time: 11:25
[2018-01-11] MEDS: Nicotine 14 MG PATCH TD SCH (17:29)
[2018-01-12] MEDS: HYDROcodone/Acetaminophen 5/325 mg Tablet PO PRN ×3 (05:59→20:40)
[2018-01-12] MEDS: Enoxaparin Sodium 40 MG/0.4 ML SYRINGE SC SCH (08:12)
[2018-01-12] MEDS: levETIRAcetam 500 MG TAB PO SCH ×2 (08:13→20:40)
--- NOTE | 2018-01-12 09:50 | PDOC.PN ---
- Subjective Encounter Start Date: 01/12/18 Encounter Start Time: 10:30 Subjective: Patient with two more episodes of seizure with shaking on left side of body -: only, no LOC. Persistent JOSEPH since admit, intensity fluctuating. Feels very -: shakey in legs with trying to stand up.Asking about being put on disability - Objective MAR Reviewed: Yes Vital Signs & Weight: Vital Signs (12 hours) Temp Pulse Resp BP Pulse Ox 01/12/18 07:49 98.4 F 71 18 138/87 98 01/12/18 04:00 97.7 F 75 18 111/77 96 01/12/18 00:00 98.5 F 64 18 142/90 H 96 Weight Weight 215 lb 8 oz I&O: 01/11/18 01/12/18 01/13/18 06:59 06:59 06:59 Intake Total 720 1350 Balance 720 1350 Result Diagrams: 01/08/18 05:10 01/08/18 05:10 Phys Exam - Physical Examination Constitutional: NAD HEENT: moist MMs Respiratory: no wheezing, no rales, no rhonchi Cardiovascular: RRR, no significant murmur Gastrointestinal: soft, positive bowel sounds Musculoskeletal: no edema Neurological: non-focal, moves all 4 limbs Psychiatric: normal affect, A&O x 3 Dx/Plan (1) Partial seizure Status: Acute Comment: Complex partial seizure, Keppra dose increased and Depakote added. Neurology concerned about possible tumor recurrence after looking at MRI. Neurosurgery consulted, f/u outpatient. Continued seizures. Consulted Dr. Lerma since Dr. Fiore out of town for next 1 days. (2) H/O brain tumor Code(s): Z87.898 - PERSONAL HISTORY OF OTHER SPECIFIED CONDITIONS Status: Chronic Comment: s/p chemo and radiation therapy (3) Acute encephalopathy Code(s): G93.40 - ENCEPHALOPATHY, UNSPECIFIED Status: Resolved Comment: likely due to partial seizure (4) Hyponatremia Code(s): E87.1 - HYPO-OSMOLALITY AND HYPONATREMIA Status: Resolved (5) Leukopenia Code(s): D72.819 - DECREASED WHITE BLOOD CELL COUNT, UNSPECIFIED Status: Resolved (6) Tobacco abuse Code(s): Z72.0 - TOBACCO USE Status: Chronic Comment: continue nicotine replacement therapy - Plan cont current plan of care, PT/OT, DVT proph w/lovenox, DVT proph w/SCDs I spoke with Bret CASTILLO for Dr. Granados and he stated that review of -: MRI looks more like scar rather than recurrent tumor, can f/u with NS O/P -: Will need to control seizures and can then d/c home. Needs FMLA paperwork -: done before d/c. * . - Discharge Day Encounter end time: 10:45
[2018-01-12 12:18] LABS: West Nile Virus IgG Ab - CSF Negative (Negative); West Nile Virus IgM Ab - CSF Negative (Negative)
[2018-01-12 12:35] LABS: ANA Symphony (Qualitative) Negative (Negative); dsDNA IgG Antibody 0.8 IU/mL (<10 Negative)
[2018-01-12 14:27] LABS: VDRL, CSF Non Reactive (Non Rea:<1:1)
[2018-01-12] MEDS: Nicotine 14 MG PATCH TD SCH (15:21)
[2018-01-13] MEDS: HYDROcodone/Acetaminophen 5/325 mg Tablet PO PRN (04:51)
[2018-01-13 05:35] LABS: #Eosinphils 0.1 thou/uL (0.0-0.7); #Monocytes 0.4 thou/uL (0.11-0.59); #Neutrophils 1.6 thou/uL (1.40-6.50); %Basophils 0.9 % (0.0-1.0); %Eosinophils 1.8 % (0.0-10.0); %Lymphocytes 47.6 % (21.0-51.0); %Monocytes 9.5 % (0.0-10.0); %Neutrophils 40.1 % (42.0-75.0); Hemoglobin 16.3 g/dL (14.0-18.0); Mean Corpuscular HGB CONC 32.6 g/dL (32.0-36.0); Mean Corpuscular Volume 91.9 fL (78.0-98.0); Mean Platelet Volume 6.3 fL (7.4-10.4); Platelet Count 298 thou/uL (130-400); RBC Distribution Width 12.2 % (11.5-14.5); Red Blood Cell (RBC) Count 5.42 mill/uL (4.70-6.10); White Blood Cell (WBC) Count 4.1 thou/uL (4.8-10.8)
[2018-01-13 05:42] LABS: Anion Gap 11 mmol/L (10-20); BUN (Urea Nitrogen) 11 mg/dL (8.9-20.6); Calc. Creatinine Clearance 128 mL/min (70-130); Calcium 9.8 mg/dL (7.8-10.44); Carbon Dioxide 27 mmol/L (22-29); Chloride 103 mmol/L (98-107); Estimated GFR-MDRD Greater than 90; Glucose 90 mg/dL (70-105); Potassium 4.2 mmol/L (3.5-5.1); Sodium 137 mmol/L (136-145)
[2018-01-13] MEDS: levETIRAcetam 500 MG TAB PO SCH ×2 (09:05→20:08)
[2018-01-13] MEDS: Enoxaparin Sodium 40 MG/0.4 ML SYRINGE SC SCH (09:06)
--- NOTE | 2018-01-13 12:41 | PDOC.PN ---
- Subjective Encounter Start Date: 01/13/18 Encounter Start Time: 12:39 42 M with a h/o brain tumor admitted with partial seizures. neurology on board- patient's doses of keppra and Depakote increased. MRI brain showed unspecific meningeal enhancement of R occipital and parietal lobes as well as abnormal enhancement in L periventricular white matter. Neurosurgery was consulted about possible tumor recurrence and no acute intervention recommended. Will follow up in clinic on outpatient basis. Patient still c/o seizure episodes (reports up to 5 overnight). - Objective MAR Reviewed: Yes Vital Signs & Weight: Vital Signs (12 hours) Temp Pulse Pulse Pulse Resp BP BP 01/13/18 11:48 97.4 F L 94 16 01/13/18 09:21 61 64 146/106 H 147/105 H 01/13/18 08:00 97.3 F L 78 16 01/13/18 07:53 97.3 F L 78 16 01/13/18 04:12 97.7 F 76 20 BP Pulse Ox 01/13/18 11:48 142/99 H 98 01/13/18 09:21 01/13/18 08:00 01/13/18 07:53 127/87 97 01/13/18 04:12 147/99 H 97 Weight Weight 215 lb 8 oz I&O: 01/12/18 01/13/18 01/14/18 06:59 06:59 06:59 Intake Total 1350 1430 120 Balance 1350 1430 120 Result Diagrams: 01/13/18 04:51 01/13/18 04:51 Phys Exam - Physical Examination Constitutional: NAD HEENT: moist MMs, sclera anicteric Neck: supple, full ROM Respiratory: no wheezing, no rales, no rhonchi, clear to auscultation bilateral Cardiovascular: RRR, no significant murmur, no rub Gastrointestinal: soft, non-tender, no distention, positive bowel sounds Musculoskeletal: no edema, pulses present Neurological: non-focal, moves all 4 limbs Psychiatric: normal affect, A&O x 3 Skin: no rash, normal turgor Dx/Plan (1) Partial seizure Status: Acute Comment: Complex partial seizure, Keppra dose increased and Depakote added. Neurology on nboard. Patient might need EEG/Continuous EEG. Will get depakote and keppra levels. (2) H/O brain tumor Code(s): Z87.898 - PERSONAL HISTORY OF OTHER SPECIFIED CONDITIONS Status: Chronic Comment: s/p chemo and radiation therapy (3) Tobacco abuse Code(s): Z72.0 - TOBACCO USE Status: Chronic Comment: continue nicotine replacement therapy - Plan cont current plan of care, out of bed/ambulate, DVT proph w/lovenox * . Review of Systems - Medications/Allergies Allergies/Adverse Reactions: Allergies Allergy/AdvReac Type Severity Reaction Status Date / Time No Known Drug Allergies Allergy Verified 01/07/18 13:47 Medications: Current Medications Acetaminophen (Tylenol) 650 mg PO Q4H PRN PRN Reason: Headache/Fever or Pain Hydrocodone Bitart/Acetaminophen ([place] 5/325) 1 tab PO Q4H PRN PRN Reason: Moderate Pain (4-6) Last Admin: 01/13/18 04:51 Dose: 1 tab Bisacodyl (Dulcolax) 10 mg PO DAILYPRN PRN PRN Reason: Constipation Divalproex Sodium (Depakote Er) 500 mg PO DAILY [facility] Last Admin: 01/13/18 09:06 Dose: 500 mg Enoxaparin Sodium (Lovenox) 40 mg SC 0900 [facility] Last Admin: 01/13/18 09:06 Dose: 40 mg Labetalol HCl (Normodyne) 10 mg SLOW IVP Q4H PRN PRN Reason: Systolic BP > 180 Levetiracetam (Keppra) 1,500 mg PO BID [facility] Last Admin: 01/13/18 09:05 Dose: 1,500 mg Lorazepam (Ativan) 1 mg SLOW IVP Q2H PRN PRN Reason: Seizures Last Admin: 01/10/18 16:56 Dose: 1 mg Morphine Sulfate (Morphine) 4 mg SLOW IVP Q6H PRN PRN Reason: Pain Last Admin: 01/12/18 08:15 Dose: 4 mg Naproxen (Naprosyn) 500 mg PO DAILYPRN PRN PRN Reason: Pain Last Admin: 01/09/18 10:55 Dose: 500 mg Nicotine (Nicoderm Patch) 14 mg TD Q24HR [facility] Last Admin: 01/12/18 15:21 Dose: 14 mg Sodium Chloride (Flush - Normal Saline) 10 ml IVF Q12HR [facility] Last Admin: 01/13/18 09:07 Dose: 10 ml Sodium Chloride (Flush - Normal Saline) 10 ml IVF PRN PRN PRN Reason: Saline Flush
[2018-01-13] MEDS: Nicotine 14 MG PATCH TD SCH (16:23)
[2018-01-14] MEDS: HYDROcodone/Acetaminophen 5/325 mg Tablet PO PRN (00:15)
[2018-01-14 05:35] LABS: Anion Gap 12 mmol/L (10-20); BUN (Urea Nitrogen) 12 mg/dL (8.9-20.6); Calc. Creatinine Clearance 123 mL/min (70-130); Calcium 9.9 mg/dL (7.8-10.44); Carbon Dioxide 27 mmol/L (22-29); Chloride 103 mmol/L (98-107); Estimated GFR-MDRD Greater than 90; Glucose 87 mg/dL (70-105); Potassium 4.4 mmol/L (3.5-5.1); Sodium 138 mmol/L (136-145)
[2018-01-14 05:47] LABS: Hemoglobin 16.3 g/dL (14.0-18.0); Mean Corpuscular HGB CONC 32.4 g/dL (32.0-36.0); Mean Corpuscular Hemoglobin 30.6 pg (27.0-31.0); Mean Corpuscular Volume 94.7 fL (78.0-98.0); Mean Platelet Volume 6.4 fL (7.4-10.4); Platelet Count 281 thou/uL (130-400); RBC Distribution Width 12.3 % (11.5-14.5); Red Blood Cell (RBC) Count 5.33 mill/uL (4.70-6.10); White Blood Cell (WBC) Count 4.8 thou/uL (4.8-10.8)
[2018-01-14] MEDS: levETIRAcetam 500 MG TAB PO SCH (09:04)
[2018-01-14] MEDS: Enoxaparin Sodium 40 MG/0.4 ML SYRINGE SC SCH (09:05)
--- NOTE | 2018-01-14 11:38 | PDOC.PN ---
- Subjective Encounter Start Date: 01/14/18 Encounter Start Time: 11:37 42 M with a h/o Astrocytoma in 2010 s/p CHemo and Radiation therapy admitted with partial seizures. neurology on board- patient's doses of keppra and Depakote increased. MRI brain showed unspecific meningeal enhancement of R occipital and parietal lobes as well as abnormal enhancement in L periventricular white matter. Neurosurgery was consulted about possible tumor recurrence and no acute intervention recommended. Will follow up in clinic on outpatient basis. Patient still c/o seizure episodes (reports up to 5 overnight) . Still continues to have reported seizure episodes. Neurology on board and recommends transferring to [facility] where an epilepsy specialist can review the case. - Objective MAR Reviewed: Yes Vital Signs & Weight: Vital Signs (12 hours) Temp Pulse Resp BP Pulse Ox 01/14/18 08:00 97.4 F L 71 16 01/14/18 07:19 97.4 F L 71 16 136/90 95 01/14/18 03:39 97.7 F 67 20 142/98 H 97 01/13/18 23:46 97.7 F 83 20 148/102 H 98 Weight Weight 215 lb 8 oz I&O: 01/13/18 01/14/18 01/15/18 06:59 06:59 06:59 Intake Total 1430 1330 Balance 1430 1330 Result Diagrams: 01/14/18 05:09 01/14/18 05:09 Phys Exam - Physical Examination Constitutional: NAD HEENT: moist MMs, sclera anicteric Neck: supple, full ROM Respiratory: no wheezing, no rales, no rhonchi, clear to auscultation bilateral Cardiovascular: RRR, no significant murmur, no rub Gastrointestinal: soft, non-tender, no distention, positive bowel sounds Musculoskeletal: no edema, pulses present Neurological: non-focal, moves all 4 limbs Psychiatric: normal affect, A&O x 3 Skin: no rash, normal turgor Dx/Plan (1) Partial seizure Status: Acute Comment: Stable. Complex partial seizure, Keppra dose increased and Depakote added. Neurology on board. Patient might need EEG/Continuous EEG. (2) H/O brain tumor Code(s): Z87.898 - PERSONAL HISTORY OF OTHER SPECIFIED CONDITIONS Status: Chronic Comment: s/p chemo and radiation therapy (3) Tobacco abuse Code(s): Z72.0 - TOBACCO USE Status: Chronic Comment: continue nicotine replacement therapy - Plan cont current plan of care, plan discussed w/ family, out of bed/ambulate, DVT proph w/lovenox PAtient has been reviewed by neurology and recommend transfer to a tertiary center where he can be reviewed by an Epilepsy specialist. Review of Systems - Medications/Allergies Allergies/Adverse Reactions: Allergies Allergy/AdvReac Type Severity Reaction Status Date / Time No Known Drug Allergies Allergy Verified 01/07/18 13:47 Medications: Current Medications Acetaminophen (Tylenol) 650 mg PO Q4H PRN PRN Reason: Headache/Fever or Pain Last Admin: 01/13/18 16:23 Dose: 650 mg Hydrocodone Bitart/Acetaminophen ([place] 5/325) 1 tab PO Q4H PRN PRN Reason: Moderate Pain (4-6) Last Admin: 01/14/18 00:15 Dose: 1 tab Bisacodyl (Dulcolax) 10 mg PO DAILYPRN PRN PRN Reason: Constipation Last Admin: 01/13/18 16:23 Dose: 10 mg Divalproex Sodium (Depakote Er) 500 mg PO DAILY [facility] Last Admin: 01/14/18 09:04 Dose: 500 mg Enoxaparin Sodium (Lovenox) 40 mg SC 0900 [facility] Last Admin: 01/14/18 09:05 Dose: 40 mg Labetalol HCl (Normodyne) 10 mg SLOW IVP Q4H PRN PRN Reason: Systolic BP > 180 Levetiracetam (Keppra) 1,500 mg PO BID [facility] Last Admin: 01/14/18 09:04 Dose: 1,500 mg Lorazepam (Ativan) 1 mg SLOW IVP Q2H PRN PRN Reason: Seizures Last Admin: 01/10/18 16:56 Dose: 1 mg Morphine Sulfate (Morphine) 4 mg SLOW IVP Q6H PRN PRN Reason: Pain Last Admin: 01/12/18 08:15 Dose: 4 mg Naproxen (Naprosyn) 500 mg PO DAILYPRN PRN PRN Reason: Pain Last Admin: 01/09/18 10:55 Dose: 500 mg Nicotine (Nicoderm Patch) 14 mg TD Q24HR [facility] Last Admin: 01/13/18 16:23 Dose: 14 mg Sodium Chloride (Flush - Normal Saline) 10 ml IVF Q12HR [facility] Last Admin: 01/14/18 09:05 Dose: 10 ml Sodium Chloride (Flush - Normal Saline) 10 ml IVF PRN PRN PRN Reason: Saline Flush
[2018-01-14 15:25] LABS: CSF IgG Index 0.5 (0.0-0.7); CSF IgG Synthesis Rate -2.7 mg/day (-9.9 TO +3.3); IgG/Alb CSF 0.16 (0.00-0.25)
[2018-01-14 15:45] VITALS: BP 146/101; TEMP 98
[2018-01-14] MEDS: Nicotine 14 MG PATCH TD SCH (16:16)
--- NOTE | 2018-01-14 20:54 | DIS ---
DATE OF ADMISSION: 01/07/2018 DATE OF DISCHARGE: 01/14/2018 DISCHARGE DIAGNOSES: Complex partial seizures, history of astrocytoma, tobacco abuse. HISTORY OF PRESENT ILLNESS: Mr. Yandel Grant is a 42-year-old male who has a history of astrocytoma for which he had chemotherapy with Dr. Gallegos and radiation therapy and he was considered completely free of his tumor. He presented to the emergency room because earlier in the day he was standing and suddenly went stiff and had turn to the side and then he slowly eased himself to the floor. There was no history of frothing in the mouth, or tonic clonic activity. No history of incontinence, but he reports that his speech is slowed down. He also had some weakness in his left upper and lower extremities as well as a headache. He describes this symptoms going on for the past week and then accompanied by nausea reported to be nonradiating, no accompanying photophobia or phonophobia. He had no aggravating or relieving factors. His physical examination at time of admission was largely unremarkable. His cranial nerves were intact and His deep tendon reflexes were 2+. Strength was 5 /5 in all extremities. Labs were reviewed, which showed no marked abnormalities. He had an EKG which showed normal sinus rhythm and no ST changes to suggest ACS. He also had a CT scan of the brain without contrast, which showed no acute abnormalities. A CT angio of the head and neck was also done which did not show any hemodynamically significant stenosis, occlusion, or aneurysm formation within the large vessels. There were stable post-surgical and post-therapy changes involve the head and the brain. Leukopenia rate 4600 white cells, normal hemoglobin, normal platelet count. INR was 1.0. Serum sodium was 34, otherwise normal comprehensive metabolic profile. Troponin was normal and he had elevated prolactin of 28.5. Unremarkable urinalysis and unremarkable urine toxicology. He was then admitted for acute encephalopathy which an MRI of the brain was ordered. Neurology service was sought. His brain MRI on 01/07/2018 showed no evidence of acute intracranial abnormalities. 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 He had a repeat MRI on 01/09/2018 and this revealed no abnormal enhancement seen in the left transventricular white matter. This patient's initial astrocytoma happened in 2010. He did have no further exams and the patient appeared to have radiation therapy. The changes in the white matter demonstrated on the T2 sequences could potentially represent post-radiation therapy changes, small vessel ischemic disease is a possibility, although the patient is young. There was also abnormal meningeal enhancement seen in the right occipital lobe and parietal lobe is nonspecific. After review by Neurology, there was possible concern for recurrence of his tumor so Neurosurgery consult was obtained. They reviewed the patient and no acute surgical intervention was warranted and recommended to follow up with neurosurgery on an outpatient basis. However, the patient continued to have episodes which will consider possible complex partial seizures. He remained awake throughout. There was no loss of consciousness. Neurology reevaluated the patient and the patient would benefit from being transferred to a tertiary center where he could be managed by an epilepsy specialist and to have continuous EEG monitoring. Calls were made to [facility] in [place]. After discussion from the neurologist on service as well as the Hospitalist, the patient was accepted and will be transferred to [facility] for further management. DISCHARGE MEDICATIONS: Depakote 500 mg daily, [place] 1 tab q.4 hours as needed for moderate pain., labetalol 10 mg IV push every 4 hours as needed for systolic blood pressure greater than 180, Keppra 1500 mg twice a day, lorazepam 1 mg IV push q.2 hours as needed for seizures, nicotine patch 14 mg transdermally every 24 hours, naproxen sodium 2 tablets orally daily as needed. Of note, the patient's Keppra dose was increased from 500-1500 and he was initiated on Depakote while on this admission. PHYSICAL EXAMINATION: VITAL SIGNS: Temperature 98 degree Fahrenheit, pulse rate 74, respiratory rate 15, oxygen saturation 98% on room air, blood pressure 122/86. GENERAL: Not in acute distress. He is lying comfortable in bed. HEENT: Moist mucous membranes. Sclerae are anicteric. NECK: Supple, full range of movement. RESPIRATORY: No wheezing, rales or rhonchi. Clear to auscultation bilaterally. CARDIOVASCULAR: Regular rate and rhythm. S1 and S2 only. No significant murmurs or rubs. ABDOMEN: Soft, nontender, nondistended, positive bowel sounds. EXTREMITIES: No edema. Pulses present. NEUROLOGIC: Nonfocal, moving all 4 limbs. PSYCHIATRIC: Normal affect. Alert and well oriented to time, place, and person. SKIN: No rash. Normal turgor. LABORATORY DATA: WBC 4.8, hemoglobin 16.3, platelet count 281. Sodium 138, potassium 4.4, chloride 103, carbon dioxide 27, anion gap 12, BUN 12, creatinine 1.07, glucose 87, calcium 9.9. IMAGING: MRI brain, CT [place] [facility] [place] angio with contrast CT angiography, CT brain as stated in HPI. PROCEDURES: Lumbar puncture and this reveals a normal puncture, was negative for VDRL, West Nile IgG and negative for West Nile IgM. CONSULTATIONS: Neurology, Neurosurgery. CONDITION AT DISCHARGE: Stable. DIET: Low sodium. CARE GOALS: The patient has been transferred to a tertiary center-center today in the Neurology Unit. ACTIVITY: To resume as tolerated. Discharge time 55 minutes including chart review documentation. ZANE
--- NOTE | 2018-01-15 13:26 | EKG ---
Test Reason : Blood Pressure : / mmHG Vent. Rate : 067 BPM Atrial Rate : 067 BPM P-R Int : 142 ms QRS Dur : 084 ms QT Int : 402 ms P-R-T Axes : 017 057 033 degrees QTc Int : 424 ms Normal sinus rhythm Normal ECG Confirmed by KOBE MCRAE ([id number]), senior technical editor LAKSHMI SUN ([id number]) on 01/15/2018 1:26:13 PM Referred By: Confirmed By:KOBE MCRAE
== END 2018-01-14 17:12 | disposition short-term general hospital (02) | DRG 100 ==
LOC: ERS 10:33 → 2SE 14:47
PROVIDERS: ADMIT Internal Medicine; ATTEND Internal Medicine
PROC: 009U3ZX Drainage of Spinal Canal, Percutaneous Approach, Diagnostic (ICD-10-PCS; principal; 2018-01-10)
PROC: B01B1ZZ Fluoroscopy of Spinal Cord using Low Osmolar Contrast (ICD-10-PCS; 2018-01-10)
DX: G40.209 Localization-related (focal) (partial) symptomatic epilepsy and epileptic syndromes with complex partial seizures, not intractable, without status epilepticus (principal); G93.49 Other encephalopathy; E87.1 Hypo-osmolality and hyponatremia; F17.210 Nicotine dependence, cigarettes, uncomplicated; Z85.841 Personal history of malignant neoplasm of brain; D72.819 Decreased white blood cell count, unspecified
CPT/HCPCS: 36415; 36416; 62270; 70450; 70496; 70498; 70551; 70552; 80048; 80053; 80164; 80177; 80306; 80307; 81003; 82040; 82042; 82164; 82553; 82784; 82945; 83916; 84146; 84157; 84484; 85025; 85027; 85610; 85652; 85730; 86038; 86140; 86225; 86592; 86788; 86789; 87070; 87086; 87205; 89051; 93005; 95816; 95819; 96365; 96375; A4216; G8978-GP-CL; G8979-GP-CK; J1200; J1650; J1885; J2060; J2270; J2765

== ENCOUNTER 2018-02-25 08:49 | Outpatient (CLI) | payer BC ==
[2018-02-25] MEDS ORDERED: Gadobenate Dimeglumine 529 MG/1 ML (20ML VIAL) ONE (14:50)
== END 2018-02-25 08:50 | disposition home or self-care (01) ==
LOC: BICMRI 08:49
DX: C71.9 Malignant neoplasm of brain, unspecified (principal)
CPT/HCPCS: 70553; A9579